=== PATIENT | female | born 2000 | race American Indian/Alaskan Native ===

== ENCOUNTER 2021-03-20 23:09 | Emergency (ER) | payer SELFPAY ==
[2021-03-21] MEDS ORDERED: ONDANSETRON 4 MG ODT TAB PO ONE (01:27)
[2021-03-21] MEDS ORDERED: SULFAMETHOXAZOLE/TRIMETHOPRIM 800/160MG DS TAB PO ONE (01:27)
[2021-03-21] MEDS ORDERED: SODIUM CHLORIDE 0.9% 1000 ML 1,000 ML IV ONE ×3 (01:27→03:06)
[2021-03-21] MEDS ORDERED: LIDOCAINE (1%) 10 MG/1 ML VIAL 20 ML MDV INFILTRATI ONE (01:27)
[2021-03-21] MEDS ORDERED: IBUPROFEN 600 MG TAB PO ONE (01:28)
--- NOTE | 2021-03-21 01:30 | Emergency Department Report ---
ED General Adult HPI - General Chief complaint: Skin/Abscess/Foreign Body Stated complaint: VAGINA PAIN/CYST RT ARM PUI?: No Source: patient Mode of arrival: Ambulatory Limitations: No Limitations - History of Present Illness Initial comments: Patient is a 20-year-old -[place] female with a history of [id number] diabetes who presents to the ED with complaint of acute onset persistent severe painful swollen mild erythematous maculopapular rash on right axilla with diffuse body aches and pains, fever and chills for the last 1 week, worse in the last 2 days. Patient states that she is unable to sleep because of worsening pain and body aches. Patient states that she has not used IV insulin for over 1 month because she ran out of her medication and she does not have any primary care physician or insurance to be able to afford the insulin. Patient denies dizziness, syncope, chest pain, shortness of breath, abdominal pain, nausea and vomiting, headache, vaginal bleeding, vaginal discharge, dysuria, urinary frequency and urgency MD Complaint: Painful right axilla rash; fever and chills -: Sudden, week(s) (1) Location: upper extremity (Right axilla) Radiation: non-radiation Severity scale (0 -10): 8 Quality: aching, sharp Consistency: constant Improves with: none Worsens with: movement Associated Symptoms: denies other symptoms, fever/chills, loss of appetite, rash (Swollen, painful, erythematous maculopapular rash on right axilla). denies: confusion, chest pain, cough, diaphoresis, headaches, malaise, nausea/vomiting, shortness of breath, syncope, weakness Treatments Prior to Arrival: none - Related Data Previous Rx's Medication Instructions Recorded Last Taken Type Acetaminophen/Codeine [Tylenol 1 tab PO Q6H PRN #12 tab 03/21/21 Unknown Rx /Codeine # 3 tab] Clindamycin [Clindamycin CAP] 300 mg PO Q6HR #60 capsule 03/21/21 Unknown Rx Ibuprofen [Motrin] 800 mg PO Q8HR PRN #30 tablet 03/21/21 Unknown Rx Insulin NPH/Regular [NovoLIN 70/30] 70 unit SQ QHS #10 ml 03/21/21 Unknown Rx Ondansetron [Zofran Odt] 4 mg PO Q6HR PRN #15 tab.rapdis 03/21/21 Unknown Rx Sulfamethoxazole/Trimethoprim 1 each PO Q12H #20 tablet 03/21/21 Unknown Rx [Bactrim DS TAB] Allergies Allergy/AdvReac Type Severity Reaction Status Date / Time No Known Allergies Allergy Unverified 03/21/21 01:24 ED Review of Systems ROS: Stated complaint: VAGINA PAIN/CYST RT ARM Other details as noted in HPI Constitutional: chills, fever, malaise, weakness Eyes: denies: eye pain, eye discharge, vision change ENT: denies: ear pain, throat pain Respiratory: denies: cough, shortness of breath, wheezing Cardiovascular: denies: chest pain, palpitations Endocrine: no symptoms reported Gastrointestinal: denies: abdominal pain, nausea, vomiting, diarrhea Genitourinary: denies: urgency, dysuria, discharge Musculoskeletal: arthralgia (right axillar pain due to a swollen erythematous rash). denies: back pain, joint swelling Skin: rash (Swollen, severely tender erythematous maculopapular rash on right axilla), change in color. denies: lesions Neurological: denies: headache, weakness, paresthesias Psychiatric: anxiety. denies: depression Hematological/Lymphatic: denies: easy bleeding, easy bruising ED Past Medical Hx - Past Medical History Hx Diabetes: Yes - Surgical History Past Surgical History?: No - Social History Smoking Status: Current Every Day Smoker - Medications Home Medications: Home Medications Medication Instructions Recorded Confirmed Last Taken Type Acetaminophen/Codeine [Tylenol 1 tab PO Q6H PRN #12 tab 03/21/21 Unknown Rx /Codeine # 3 tab] Clindamycin [Clindamycin CAP] 300 mg PO Q6HR #60 capsule 03/21/21 Unknown Rx Ibuprofen [Motrin] 800 mg PO Q8HR PRN #30 tablet 03/21/21 Unknown Rx Insulin NPH/Regular [NovoLIN 70/30] 70 unit SQ QHS #10 ml 03/21/21 Unknown Rx Ondansetron [Zofran Odt] 4 mg PO Q6HR PRN #15 tab.rapdis 03/21/21 Unknown Rx Sulfamethoxazole/Trimethoprim 1 each PO Q12H #20 tablet 03/21/21 Unknown Rx [Bactrim DS TAB] ED Physical Exam - General Limitations: No Limitations General appearance: alert, in no apparent distress, anxious, other (Febrile) - Head Head exam: Present: atraumatic, normocephalic, normal inspection - Eye Eye exam: Present: normal appearance, PERRL, EOMI Pupils: Present: normal accommodation - ENT ENT exam: Present: normal exam, normal orophraynx, mucous membranes moist, TM's normal bilaterally, normal external ear exam - Neck Neck exam: Present: normal inspection, full ROM. Absent: tenderness - Respiratory Respiratory exam: Present: normal lung sounds bilaterally. Absent: respiratory distress, wheezes, rales, rhonchi, chest wall tenderness, accessory muscle use, decreased breath sounds, prolonged expiratory - Cardiovascular Cardiovascular Exam: Present: normal rhythm, tachycardia, normal heart sounds. Absent: systolic murmur, diastolic murmur, rubs, gallop - GI/Abdominal GI/Abdominal exam: Present: soft, normal bowel sounds. Absent: tenderness, guarding, hyperactive bowel sounds, hypoactive bowel sounds, organomegaly - Extremities Exam Extremities exam: Present: normal inspection, full ROM, tenderness (Palpable severe right axilla tenderness due to swollen, erythematous maculopapular fluctuant rash), normal capillary refill - Back Exam Back exam: Present: normal inspection, full ROM. Absent: tenderness, CVA te nderness (R), muscle spasm, paraspinal tenderness, rash noted - Neurological Exam Neurological exam: Present: alert, oriented X3, CN II-XII intact, normal gait, reflexes normal - Psychiatric Psychiatric exam: Present: normal affect, normal mood, anxious - Skin Skin exam: Present: warm, dry, intact, normal color, rash (Swollen, severely tender, erythematous maculopapular fluctuant rash on right axilla), erythema ED Course Vital Signs 03/21/21 03/21/21 03/21/21 00:48 01:44 02:44 Temperature 100.8 F H Pulse Rate 113 H Respiratory 14 18 18 Rate Blood Pressure 148/93 O2 Sat by Pulse 100 Oximetry 03/21/21 04:16 Temperature Pulse Rate Respiratory 18 Rate Blood Pressure O2 Sat by Pulse Oximetry - I & D Right Arm Type of Procedure: Simple Site: Right axilla Blade Size: 11 I & D Procedure: betadine prep, sterile drapes applied, sterile dressing applied, gauze wick placed Progress: The area was cleaned with normal saline and Betadine solution. 10 cc of lidocaine 1% solution was infiltrated around the rash and when anesthesia was fully achieved, the rash was incised and drained and copious thick purulent malodorous discharge drained from the wound. The wound was extensively debrided with normal saline and if loculations were broken with hemostat. The wound was then packed with iodoform quarter inch gauze and a total of 40 cm of the gauze was used to pack the wound. The wound was then dressed appropriately and the patient tolerated procedure well. Patient was discharged home on pain medication and antibiotics and was advised to return to the ED in 2 days for wound recheck and packing removal. Patient was otherwise advised to follow-up with her primary care physician in 7 to 10 days for reevaluation or return to the ED immediately if symptoms get worse. ED Medical Decision Making - Lab Data Result diagrams: 03/21/21 01:29 03/21/21 01:29 - Medical Decision Making This is a 20-year-old -[place] female with a history of [id number] diabetes who presents to the ED with complaint of acute onset persistent severe painful swollen mild erythematous maculopapular rash on right axilla with diffuse body aches and pains, fever and chills for the last 1 week, worse in the last 2 days. Patient states that she is unable to sleep because of worsening pain and body aches. Patient states that she has not used IV insulin for over 1 month because she ran out of her medication and she does not have any primary care physician or insurance to be able to afford the insulin.in the ED, patient is alert and oriented x3 and is not in any distress but appears to be in significant pain, febrile and tachycardic in triage. Patient was treated for pain in the ED and also given normal saline 2 L IV bolus as well as antibiotics, clindamycin 900 mg IV x1 and Bactrim DS p.o. x1 in the ED. On reevaluation, patient's pain is well controlled medication. Lab test results were reviewed and showed acute leukocytosis of 17,900, acute hyponatremia 130 mmol/L and hyperglycemia of 343 mg/dL. The area was cleaned with normal saline and Betadine solution. 10 cc of lidocaine 1% solution was infiltrated around the rash and when anesthesia was fully achieved, the rash was incised and drained and copious thick purulent malodorous discharge drained from the wound. The wound was extensively debrided with normal saline and if loculations were broken with hemostat. The wound was then packed with iodoform quarter inch gauze and a total of 40 cm of the gauze was used to pack the wound. The wound was then dressed appropriately and the patient tolerated procedure well. On reevaluation, point of care serum glucose after infusion of 2 L of normal saline IV fluids was 254 mg/dL. Patient's pain is well controlled with medications, and tachycardia and fever resolved. Patient was discharged home on pain medication and antibiotics and was advised to return to the ED in 2 days for wound recheck and packing removal. Patient was otherwise advised to follow- up with her primary care physician in 7 to 10 days for reevaluation or return to the ED immediately if symptoms get worse - Differential Diagnosis Cellulitis; cutaneous abscess; folliculitis; hyperglycemia Critical care attestation.: If time is entered above; I have spent that time in minutes in the direct care of this critically ill patient, excluding procedure time. ED Disposition Clinical Impression: Cutaneous abscess of right axilla, Cellulitis of right axilla, Acute folliculitis Hyperglycemia due to type 2 diabetes mellitus Qualifiers: Diabetes mellitus skilled nursing insulin use: without petroleum terminal plant operator use Qualified Code(s): E11.65 - Type 2 diabetes mellitus with hyperglycemia Disposition: DC-01 TO HOME OR SELFCARE Is pt being admited?: No Does the pt Need Aspirin: No Condition: Stable Instructions: Diabetes Mellitus Type 2 in Adults (ED), Insulin Treatment for Diabetes Mellitus, Hyperglycemia, [id number], Skin Abscess, [id number], Cellulitis, Adult, [id number] Additional Instructions: All lab test results were reviewed and showed reactive leukocytosis and hyperglycemia as well as hyponatremia. You have been treated in the ED adequately with antibiotics, also received 2 L of normal saline IV fluids which should be able to replenish the low sodium in your blood initially. Therefore take medications including antibiotics as advised, drink plenty of fluids and follow-up with your primary care physician in 7 to 10 days for reevaluation. Return to the ED in 2 days for wound recheck and packing removal. Otherwise return to the ED immediately if symptoms get worse. Prescriptions: Insulin NPH/Regular [NovoLIN 70/30] 70 unit SQ QHS #10 ml Sulfamethoxazole/Trimethoprim [Bactrim DS TAB] 1 each PO Q12H #20 tablet Clindamycin [Clindamycin CAP] 300 mg PO Q6HR #60 capsule Ibuprofen [Motrin] 800 mg PO Q8HR PRN #30 tablet PRN Reason: Pain , Severe (7-10) Acetaminophen/Codeine [Tylenol /Codeine # 3 tab] 1 tab PO Q6H PRN #12 tab PRN Reason: Pain , Severe (7-10) Ondansetron [Zofran Odt] 4 mg PO Q6HR PRN #15 tab.rapdis PRN Reason: Nausea Forms: Work/School Release Form(ED) Time of Disposition: 05:33 Print Language: BENINESE
[2021-03-21 01:49] LABS: Basophils # (Auto) 0.1 K/mm3 (0.0-0.1); Basophils % (Auto) 0.6 % (0.0-1.8); Eosinophils # (Auto) 0.1 K/mm3 (0.0-0.4); Eosinophils % (Auto) 0.5 % (0.0-4.3); Hematocrit 40.1 % (30.3-42.9); Hemoglobin 13.4 gm/dl (10.1-14.3); Lymphocytes # (Auto) 2.2 K/mm3 (1.2-5.4); Lymphocytes % (Auto) 12.4 % (13.4-35.0); Mean Corpuscular HGB Conc 34 % (30-34); Mean Corpuscular Volume 85 fl (79-97); Monocytes # (Auto) 1.3 K/mm3 (0.0-0.8); Platelet Count 425 K/mm3 (140-440); Red Blood Count 4.71 M/mm3 (3.65-5.03); Red Cell Distribution Width 13.5 % (13.2-15.2)
[2021-03-21 02:12] LABS: Alanine Aminotransferase 7 units/L (7-56); Albumin 4.4 g/dL (3.9-5); Blood Urea Nitrogen 9 mg/dL (7-17); Calcium 9.4 mg/dL (8.4-10.2); Hemolysis Index 15
[2021-03-21 02:16] LABS: BUN/Creatinine Ratio 15
[2021-03-21] MEDS ORDERED: ONDANSETRON 4 MG/2 ML INJ IV ONE (04:12)
[2021-03-21] MEDS ORDERED: KETOROLAC 30 MG/1 ML INJ IV ONE (04:12)
[2021-03-21 05:16] VITALS: BP 145/81
== END 2021-03-21 05:40 | disposition home or self-care (01) ==
LOC: ED 23:09
DX: L03.111 Cellulitis of right axilla (principal); L02.411 Cutaneous abscess of right axilla; L73.9 Follicular disorder, unspecified; E11.65 Type 2 diabetes mellitus with hyperglycemia; F17.200 Nicotine dependence, unspecified, uncomplicated; Z79.899 Other long term (current) drug therapy
CPT/HCPCS: 10060; 36415; 80053; 82962; 85025; 96361; 96365; 96375; 99283; J1885; J2405; J7030; Q0162